=== PATIENT | female | born 1995 | race Caucasian/White ===

== ENCOUNTER → 2017-03-21 | Outpatient (CLI) | payer BC ==
--- NOTE | 2017-03-21 17:10 | KCIC ---
PROCEDURE MRI of the brain/pituitary without contrast 03/21/2017 HISTORY Elevated prolactin level. TECHNIQUE Unenhanced T1 weighted axial and FLAIR, gradient echo and diffusion weighted axial images of the brain were obtained. Thin section T2 weighted and fat saturated T1 weighted fat saturated coronal and sagittal images through the pituitary gland were obtained. FINDINGS The ventricles and sulci are within normal limits in size and configuration. No area of significant abnormal signal intensity is seen involving the brain parenchyma. No extra-axial fluid collection is noted. No extra-axial fluid collection is seen. There is no MRI evidence acute ischemia/infarction. The unenhanced MRI images through the pituitary gland are within normal limits. No mass lesion is seen. Mild mucosal thickening is seen involving scattered ethmoid air cells bilaterally. Normal flow voids are seen within the major vascular structures surrounding the brain parenchyma. IMPRESSION No abnormality of the pituitary gland is seen. If there is clinical concern for a pituitary microadenoma, post-contrast imaging through the pituitary gland would be more sensitive. Electronically signed by: Sunday Arechiga MD (March 21, 2017 17:09:03)
== END | disposition home or self-care (01) ==
LOC: KCIC MRI 15:14
PROVIDERS: ATTEND Advanced Practice Midwife
DX: E22.9 Hyperfunction of pituitary gland, unspecified (principal)
CPT/HCPCS: 70551

== ENCOUNTER → 2017-12-06 | Outpatient (CLI) | payer OTHER ==
[2017-12-06] MEDS: GADOBUTROL 7.5 MMOL/7.5 ML VIAL IV ×2 (10:03)
== END | disposition home or self-care (01) ==
LOC: KCIC MRI 09:11
DX: E22.9 Hyperfunction of pituitary gland, unspecified (principal)
CPT/HCPCS: 70553; A9585